=== PATIENT | female | born 1955 | race Hispanic/Latino ===

== ENCOUNTER 2025-08-12 09:31 | Emergency (ER) | payer MEDICARE ==
[~2025-08-12] VITALS: Ht 152.4 cm; Wt 68.0 kg
[~2025-08-12 09:31] MED LIST: AMLO-258 PO; ASPI-1197 PO; HYDR25TA PO; LOSA25TA41 PO; LOVA40TA2 PO; METO100T14 PO
--- NOTE | 2025-08-12 09:42 | NUR ---
PT BEDDED IN ED BED 20
[2025-08-12 09:53] LABS: IMMATURE GRANULOCYTE ABSOLUTE 0.05 K/uL (0-1); NUCLEATED RED BLOOD CELLS 0.0 % (0.0-0.19); PLATELET COUNT (AUTO) 279 K/uL (130-400); RED BLOOD CELL COUNT(AUTO) 4.69 MIL/uL (4.00-5.50); RED CELL DISTRIBUTION WIDTH 12.5 % (11.0-15.5); WHITE BLOOD COUNT (AUTO) 11.7 K/uL (4.8-10.8)
[2025-08-12 10:01] LABS: CREATININE 0.6 mg/dL (0.5-1.0); GLOMERULAR FILTR. RATE CALC 96.0 mL/min (>90); GLUCOSE,RANDOM 130.0 mg/dL (70-105); SODIUM SERUM 138.0 mmol/L (136-145); UREA NITROGEN, BLOOD 15.0 mg/dL (7-18)
[2025-08-12 10:02] LABS: INR 0.99 (0.85-1.15)
[2025-08-12 10:06] LABS: CREATINE KINASE, TOTAL 114.0 U/L (21-232)
--- NOTE | 2025-08-12 10:12 | EKG ---
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
[2025-08-12] MEDS: 0.9%NACL 1000ML 1,000 ML IV ONE (10:29)
--- NOTE | 2025-08-12 10:50 | HMCIMG ---
EXAM: CR Chest, 1 View. CLINICAL HISTORY: cp COMPARISON: None provided. FINDINGS: LUNGS: The lungs show no infiltrate or other acute finding. PLEURAL SPACES: No pleural effusion or pneumothorax. MEDIASTINUM: The cardiomediastinal silhouette is within normal limits. BONES: No acute osseous abnormality. IMPRESSION: No acute cardiopulmonary pathology is evident. /[place]
--- NOTE | 2025-08-12 11:34 | ERN ---
General Chief Complaint: Weakness Stated Complaint: WEAKNESS W/HYPERTENSION Time Seen by MD: 09:34 Source: patient History of Present Illness Initial Comments Patient is a 70-year-old female coming in with multiple complaints. Per patient earlier today while sitting down she felt he had in the back of her neck and fell weak momentarily. She states that the symptoms was brief and transient and has since gone away. She states he is here for further evaluation. Allergies: Coded Allergies: Penicillins (Verified Allergy, Unknown, 10/21/18) lisinopril (Verified Allergy, Unknown, 10/21/18) Home Meds Reported Medications Hydrochlorothiazide (Hydrochlorothiazide) 25 Mg Tablet, 25 MG PO DAILY, TAB 10/21/18 Metoprolol Tartrate (Metoprolol Tartrate) 100 Mg Tablet, 100 MG PO BID, TAB 10/21/18 Losartan Potassium (Losartan Potassium) 25 Mg Tablet, 25 MG PO DAILY, TAB 10/21/18 Lovastatin (Lovastatin) 40 Mg Tablet, 40 MG PO DAILY, TAB 10/21/18 Amlodipine Besylate (Amlodipine Besylate) 10 Mg Tablet, 10 MG PO DAILY, TAB 10/21/18 Aspirin (Aspirin) 81 Mg Tab.chew, 81 MG PO DAILYBKFST, TAB.CHEW 10/21/18 Past Medical History Past Medical History: Diabetes-Type II, Hypertension Past Surgical History: None ROS Dictation CONSTITUTIONAL: No chills, no fever, no weakness, no diaphoresis, no malaise. HEAD/FACE: No signs of trauma. EENT: No eye pain, no blurred vision, no tearing, no double vision, no ear pain, no ear discharge, no nose pain, no nasal congestion, no throat pain, no throat swelling, no mouth pain. RESPIRATORY: No cough, no orthopnea, no SOB, no stridor, no wheezing. CARDIOVASCULAR: No chest pain, no edema, no palpitations, no syncope. GASTROINTESTINAL/ABDOMINAL: No abdominal pain, no constipation, no diarrhea, no nausea, no vomiting. GENITOURINARY: No abnormal discharge, no dysuria, no frequent urination, no hematuria. No complaints of pain in the genitals. MUSCULOSKELETAL: No back pain, no gout, no joint pain, no joint swelling, no muscle pain, no muscle stiffness, no neck pain. INTEGUMENTARY: No change in color, no change in hair/nails, no dryness, no lesion, no lumps, no rash. NEUROLOGICAL/PSYCH: No anxiety, not depressed, no emotional problem, no headache, no numbness, no pre-existing deficit, no history of seizures, no tremors, no weakness. HEMATOLOGIC/LYMPHATIC: Not anemic, no history of blood clots, no apparent bleeding, no bruising, glands not swollen. All Systems Negative, Except as Noted. Physical Exam Physical Exam Dictation VITAL SIGNS: Reviewed. GENERAL APPEARANCE: Alert, oriented x3, no acute distress, obese. HEAD AND FACE: Non-traumatic. EYES: PERRL, pink conjunctivas, eyelid no trauma, anterior chamber clear. EARS: Pinnas intact and no signs of trauma or erythema. Ear canals clear and no discharge. TMs no erythema. NOSE: No discharge, no bleeding. OROPHARYNX: Mouth normal, teeth no caries, tongue pink. Pharynx clear, no wade thema. Tonsils no exudates, no abscesses noted. Mucous membrane moist. NECK: Supple, non-tender, no thyromegaly, no masses, no JVD, no bruits. BREAST: Deferred. CHEST: No tenderness, no crepitus, no paradoxical movement, no retractions. LUNGS: Clear, well-ventilated, symmetric, no rales, no wheezing, no rhonchi, no stridor, good breath sounds bilaterally. HEART: Regular rate, regular rhythm, no murmur, no gallops. VASCULAR: No peripheral edema. ABDOMEN: Soft, positive bowel sounds, nondistended, no guarding, nontender, no rebound, no masses no hepatomegaly, no splenomegaly, no Joyner's sign, no hernias. RECTAL: Deferred. GENITAL: Deferred. NEUROLOGICAL: Normal speech, gross motor function intact, gross sensory function intact. MUSCULOSKELETAL: Neck nontender, full range of motion, back nontender, full range of motion. EXTREMITIES: Nontender, full range of motion. SKIN: Color pink, dry, no turgor, no rash, no lacerations, no abrasions, no contusions. LYMPHATICS: Deferred. Results Laboratory and Microbiology Lab and Micro Result Laboratory Tests Test 08/12/25 09:48 08/12/25 11:26 White Blood Count 11.7 K/uL (4.8-10.8) H Red Blood Count 4.69 MIL/uL (4.00-5.50) Hemoglobin 14.4 g/dL (12.0-16.0) Hematocrit 43.5 % (36-48) Mean Corpuscular Volume 92.8 fL (79-99) Mean Corpuscular Hemoglobin 30.7 pg (27.0-33.0) Mean Corpuscular Hemoglobin Concent 33.1 g/dL (32.0-36.0) Red Cell Distribution Width 12.5 % (11.0-15.5) Platelet Count 279 K/uL (130-400) Mean Platelet Volume 10.1 fL (7.5-10.5) Immature Granulocyte % (Auto) 0.4 % (0-1) Neutrophils (%) (Auto) 73.1 % (40.0-77.0) Lymphocytes (%) (Auto) 20.6 % (21.0-51.0) L Monocytes (%) (Auto) 4.1 % (3.0-13.0) Eosinophils (%) (Auto) 1.5 % (0.0-8.0) Basophils (%) (Auto) 0.3 % (0.0-5.0) Neutrophils # (Auto) 8.6 K/uL (1.8-7.7) H Lymphocytes # (Auto) 2.4 K/uL (1.0-4.8) Monocytes # (Auto) 0.5 K/uL (0.1-1.0) Eosinophils # (Auto) 0.17 K/uL (0.00-0.70) Basophils # (Auto) 0.04 K/uL (0.00-0.20) Absolute Immature Granulocyte (auto 0.05 K/uL (0-1) Nucleated Red Blood Cells 0.0 % (0.0-0.19) Prothrombin Time 10.5 SEC (9.6-11.6) Prothromb Time International Ratio 0.99 (0.85-1.15) Activated Partial Thromboplast Time 32.6 SEC (26.3-35.5) Sodium Level 138 mmol/L (136-145) Potassium Level 4.1 mmol/L (3.5-5.1) Chloride Level 98 mmol/L (101-111) L Carbon Dioxide Level 30 mmol/L (21-32) Blood Urea Nitrogen 15 mg/dL (7-18) Creatinine 0.6 mg/dL (0.5-1.0) Glomerular Filtration Rate Calc 96 mL/min (>90) Random Glucose 130 mg/dL (70-105) H Total Calcium 9.1 mg/dL (8.5-10.1) Magnesium Level 2.00 mg/dL (1.80-2.40) Total Creatine Kinase 114 U/L (21-232) Troponin I High Sensitivity 8 ng/L (4-50) Urine Color COLORLESS (YELLOW) Urine Appearance CLEAR (CLEAR) Urine pH 7.5 (5.0-8.0) Urine Specific [place] 1.007 (1.001-1.031) Urine Protein NEGATIVE mg/dL (NEGATIVE) Urine Glucose (UA) NEGATIVE mg/dL (NEGATIVE) Urine Ketones NEGATIVE mg/dL (NEGATIVE) Urine Occult Blood NEGATIVE (NEGATIVE) Urine Nitrate NEGATIVE (NEGATIVE) Urine Bilirubin NEGATIVE mg/dL (NEGATIVE) Urine Urobilinogen 0.2 mg/dL (0.2-1.0) Urine Leukocyte Esterase NEGATIVE Janae/uL Labs Reviewed?: Yes EKG/XRAY/US/CT/MRI EKG Comment 08/12/2025 time 9:51 a.m. Ventricular rate [address] wave elevation or depression MDM MDM: Differential diagnosis:, wellness exam, dehydration, Rationale: Tests considered and ordered secondary to shared decision making include: Previous outside records reviewed: Old ER visits. Risk of complication and/or morbidity or mortality of patient management: None Medications-Per medication reconciliation Need for hospitalization: Patient does not meet criteria for hospitalization. Need for emergency major/minor surgery: No Patient is a 70-year-old female coming in complaining of the neck discomfort that lasted momentarily. On physical exam there in his no tenderness on palpation patient states that he feels much better. Laboratory workup within normal limits patient was hydrated with IV fluids and has a remained stable. Patient will be discharged in stable condition with a diagnosis of wellness exam and possible dehydration. ED Course Orders Procedure Category Date Status Time Cbc With Differential LAB 08/12/25 Complete 09:34 Prothrombin Time With LAB 08/12/25 Complete INR 09:34 Chest 1vw RAD 08/12/25 Resulted 09:34 12 Lead Ekg Tracing- EKG 08/12/25 Complete Technical 09:34 0.9%Nacl 1000ml (Ns PHA 08/12/25 Complete 1000ml) 10:00 Magnesium LAB 08/12/25 Complete 09:34 Creatine Kinase, Total LAB 08/12/25 Complete 09:34 Troponin I High LAB 08/12/25 Complete Sensitivity 09:34 Urinalysis Profile LAB 08/12/25 Complete 09:34 Partial LAB 08/12/25 Complete Thromboplastin Time 09:34 Basic Metabolic Panel LAB 08/12/25 Complete 09:34 Current Medications Medications (Trade) Dose Ordered Sig/Diane Route PRN Reason Start Time Stop Time Status Last Admin Dose Admin Sodium Chloride 1,000 ml @ 0 mls/hr ONCE ONCE IV 08/12/25 10:00 08/12/25 10:01 DC 08/12/25 10:29 Vital Signs Date Time Temp Pulse Resp B/P (MAP) Pulse Ox O2 Delivery O2 Flow Rate FiO2 08/12/25 10:35 98.2 56 17 148/65 95 Room Air* 0 21 08/12/25 09:33 97.9 57 18 151/77 97 Room Air 0 DX & DISP Disposition: Discharge Departure Impression: Primary Impression: Wellness examination Additional Impression: Dehydration Condition: Stable Additional Instructions: You have been reviewed in the emergency department at [facility] after presenting with chest pain. After considering your history, your risk factors, your EKG and your blood test troponins, have been found to be at very low risk less than (1 in 100) of having a major adverse cardiac event (like heart attack) in the near future. In the " low risk" group, the risks of doing further tests and treatment as the inpatient outweighs the benefits. In many patients in the low risk group for the test of any sort or unnecessary, however he should discuss this further with his general practitioner who will understand the medical and personal backgrounds better. Because we have never declared you" no risk" we would suggest. 1 returning for medical review if you have further episodes of chest pain/arm pain or other concerning symptoms like dizziness, collapse, palpitations or shortness of breath. 2. Following up with your local doctor who will consider the need for further testing and will also ensure that any modifiable risk factors you may have for heart disease are optimally managed. Patient will be discharged in stable condition at the moment discharge patient states , no chest pain Referrals: MARK PALENCIA (PCP) Time of Disposition: 12:16 ORAL HAYWARD MD Aug 12, 2025 11:34
[2025-08-12 11:48] LABS: ADD UA MICROSCOPIC NO; APPEARANCE,URINE CLEAR (CLEAR); GLUCOSE, URINE (UA) NEGATIVE (NEGATIVE); LEUKOCYTE ESTERASE ,URINE NEGATIVE Leu/uL (NEGATIVE); NITRATE,URINE NEGATIVE (NEGATIVE); OCCULT BLOOD,URINE NEGATIVE (NEGATIVE)
[2025-08-12 13:14] VITALS: BP 153/57; PULSE 50; RESP 16; TEMP 98.1; O2SAT 98
--- NOTE | 2025-08-12 13:15 | NUR ---
dc patient was dc'd by dr mu andino dc'd patients iv with cath still intact and applied 2x2 gauze with coban, i explained to patient to follow up with pcp, provided info based on diagnosis, and answered any follow up questions, patient ambulated out of ed, no complications
== END 2025-08-12 13:13 | disposition home or self-care (01) ==
LOC: EDH 09:31
DX: E86.0 Dehydration (principal); E11.9 Type 2 diabetes mellitus without complications; I10 Essential (primary) hypertension; Z79.01 Long term (current) use of anticoagulants; Z79.82 Long term (current) use of aspirin; Z79.899 Other long term (current) drug therapy; Z88.0 Allergy status to penicillin; Z88.8 Allergy status to other drugs, medicaments and biological substances
CPT/HCPCS: 99285; 96360; 96361; 71045; 82550; 83735; 84484; 80048; 85025; 85610; 85730; 81003; 36415; 93005; J7030